=== PATIENT | female | born 1965 | race Caucasian/White ===

== ENCOUNTER 2016-07-22 13:45 | Emergency (ER) | payer BC ==
[~2016-07-22] VITALS: Ht 167.6 cm; Wt 72.9 kg
[~2016-07-22 13:45] MED LIST: ATARAX,VISTARIL25 MG PO; ATARAX,VISTARIL50 M1 PO; ATIVAN1 M1 PO; Ativan PO; CELEXA40 MG PO; CYMBALTA30 MG PO; CYMBALTA60 MG PO; FIORINAL 50-321 EACH PO; KLONOPIN1 M1 PO; KLONOPIN1 M2 PO; KLONOPIN1 MG PO; KLONOPIN2 MG PO; KlonoPIN PO; LUNESTA1 MG PO; LUNESTA3 MG PO; METAXALONE; PAXIL CR37.5 MG PO; PAXIL20 M1 PO; PAXIL40 MG PO; PERCOCET; PERCOCET 10-321 EACH PO; PERCOCET 5-3251 EACH PO; PERCOCET 5/31 TABLET PO; REQUIP1 MG PO; SAPHRIS10 MG SL; SEROQUEL100 MG PO; SEROQUEL200 MG PO; SEROQUEL300 MG PO; SOMA350 MG PO; Saphris SL; Skelaxin PO; VICODIN,LORT1 TABLET PO; VIVELLE-DOT0.05 MG TD; ZANAFLEX4 M1 PO; ZANAFLEX4 MG PO; celeXA PO
[2016-07-22 14:03] VITALS: BP 119/68
[2016-07-22 14:28] LABS: HEMATOCRIT 40.3 % (36.0-46.0); MCH 28.6 PG (29.0-34.0); MCV 89.4 FL (83-99); MEAN PLAT.VOLUME 10.2 uM^3 (9.5-12.4); PLATELET COUNT 217 K/uL (156-360); RBC DIS.WIDTH-CV 13.9 % (11.8-14.6); RBC DIS.WIDTH-SD 45.3 % (39-53); RED BLOOD COUNT 4.51 M/uL (3.80-5.20); WHITE BLOOD COUNT 8.7 K/uL (4.1-10.2)
[2016-07-22 14:59] LABS: CHLORIDE 105 mEq/L (99-109); POTASSIUM 4.1 mEq/L (3.7-5.4); SODIUM 142 mEq/L (136-147)
[2016-07-22 15:01] LABS: GLUCOSE 120 mg/dL (70-99)
[2016-07-22 15:02] LABS: ANION GAP 9 MEQ/L (2-14)
[2016-07-22 15:05] LABS: GFR ESTIMATE (CALCULATED) > 59 mL/min/; UREA NITROGEN (BUN) 15 mg/dL (9-23)
== END 2016-07-22 16:13 | disposition left against medical advice (07) ==
LOC: EME 13:45
DX: M62.831 Muscle spasm of calf (principal); M79.89 Other specified soft tissue disorders; Z53.21 Procedure and treatment not carried out due to patient leaving prior to being seen by health care provider
CPT/HCPCS: 80048; 85027

== ENCOUNTER 2016-12-05 21:08 | Emergency (ER) | payer BC ==
[~2016-12-05] VITALS: Ht 167.6 cm; Wt 68.4 kg
[~2016-12-05 21:08] MED LIST changes: +CYMBALTA; +GEODON60 MG PO; +NEURONTIN400 MG PO; +SEROQUEL XR400 MG PO; +SKELAXIN800 MG PO; +SUBOXONE 2 MG-1 EACH SL
[2016-12-05 22:16] VITALS: BP 126/83
== END 2016-12-05 22:18 | disposition home or self-care (01) ==
LOC: EME 21:08
DX: F31.81 Bipolar II disorder (principal); F41.0 Panic disorder [episodic paroxysmal anxiety]; F60.3 Borderline personality disorder; Z90.710 Acquired absence of both cervix and uterus; F11.99 Opioid use, unspecified with unspecified opioid-induced disorder; F17.200 Nicotine dependence, unspecified, uncomplicated
CPT/HCPCS: 90837; 99281; 99284